=== PATIENT | female | born 1990 | race Hispanic/Latino ===

== ENCOUNTER 2019-04-03 17:04 | Emergency (ER) | payer OTHER | END 2019-04-03 17:46 | disposition home or self-care (01) | LOC: EDH 17:04 | DX: S70.01XA Contusion of right hip, initial encounter (principal); S10.93XA Contusion of unspecified part of neck, initial encounter; S40.021A Contusion of right upper arm, initial encounter; S80.01XA Contusion of right knee, initial encounter; S16.1XXA Strain of muscle, fascia and tendon at neck level, initial encounter; Z72.0 Tobacco use; Z98.890 Other specified postprocedural states; Y04.8XXA Assault by other bodily force, initial encounter; Y93.89 Activity, other specified; Y92.89 Other specified places as the place of occurrence of the external cause; Y99.8 Other external cause status ==

== ENCOUNTER 2020-09-30 03:12 | Emergency (ER) | payer MEDICAID ==
[2020-09-30] MEDS ORDERED: ONDANSETRON HCL 4 MG/2 ML VIAL IVP ONE (03:13)
[2020-09-30] MEDS ORDERED: PROCHLORPERAZINE EDISYLATE 10 MG/2 ML VIAL IV ONE (03:13)
[2020-09-30] MEDS ORDERED: SODIUM CHLORIDE 0.9% 1000ML 1,000 ML IV ONE (03:13)
[2020-09-30] MEDS ORDERED: DiphenhydrAMINE HCL 50 MG/ML VIAL ONE (03:49)
[2020-09-30 03:56] LABS: BASOPHILS % (AUTO) 0.1 % (0.0-5.0); HEMATOCRIT 41.1 % (36-48); MEAN CORPUSCULAR HEMOGLOBIN 32.2 pg (27.0-33.0); MEAN CORPUSCULAR HGB CONC 35.8 g/dL (32.0-36.0); MEAN CORPUSCULAR VOLUME 89.9 fL (79-99); MONOCYTES % (AUTO) 2.3 % (3.0-13.0); PLATELET COUNT (AUTO) 357 K/uL (130-400); RED BLOOD CELL COUNT(AUTO) 4.57 MIL/uL (4.00-5.50); WHITE BLOOD COUNT (AUTO) 15.7 K/uL (4.8-10.8)
[2020-09-30 04:08] LABS: CREATININE 0.9 mg/dL (0.5-1.5); POTASSIUM 3.5 mmol/L (3.5-5.1)
[2020-09-30 04:12] LABS: ALBUMIN 4.2 g/dL (3.5-5.0); BILIRUBIN,TOTAL 2.3 mg/dL (0.2-1.0); TOTAL PROTEIN, SERUM 7.9 g/dL (6.0-8.3)
== END 2020-09-30 09:04 | disposition home or self-care (01) ==
LOC: EDH 03:12
DX: O34.81 Maternal care for other abnormalities of pelvic organs, first trimester (principal); N83.12 Corpus luteum cyst of left ovary; O26.891 Other specified pregnancy related conditions, first trimester; R10.31 Right lower quadrant pain; F41.9 Anxiety disorder, unspecified; Z3A.01 Less than 8 weeks gestation of pregnancy
CPT/HCPCS: 36415; 74181; 76801; 80053; 81025; 85025; 86850; 86900; 86901; 96361; 96374; 96375; 99285; J0780; J1200; J2405; J7030

== ENCOUNTER 2021-04-22 13:51 | Emergency (ER) | payer MEDICAID ==
[~2021-04-22] VITALS: Ht 160 cm; Wt 65.8 kg
[2021-04-22 13:52] VITALS: BP 117/75
[2021-04-22 15:00] VITALS: BP 125/71
[2021-04-22] MEDS ORDERED: 0.9%NACL 1000ML 1,000 ML IV ONE (15:00)
[2021-04-22] MEDS ORDERED: 0.9%NACL 1000ML 1,000 ML IV SCH (15:00)
[2021-04-22 15:05] LABS: BASOPHILS % (AUTO) 0.3 % (0.0-5.0); EOSINOPHILS % (AUTO) 0.7 % (0.0-8.0); HEMATOCRIT 39.9 % (36-48); LYMPHOCYTES % (AUTO) 19.5 % (21.0-51.0); MEAN CORPUSCULAR HEMOGLOBIN 31.3 pg (27.0-33.0); MEAN CORPUSCULAR HGB CONC 34.1 g/dL (32.0-36.0); MEAN CORPUSCULAR VOLUME 91.7 fL (79-99); MONOCYTES % (AUTO) 5.4 % (3.0-13.0); NEUTROPHILS % (AUTO) 73.3 % (40.0-77.0); PLATELET COUNT (AUTO) 272 K/uL (130-400); RED BLOOD CELL COUNT(AUTO) 4.35 MIL/uL (4.00-5.50); RED CELL DISTRIBUTION WIDTH 13.3 % (11.0-15.5); WHITE BLOOD COUNT (AUTO) 10.5 K/uL (4.8-10.8)
[2021-04-22 15:19] LABS: APPEARANCE,URINE Cloudy (CLEAR); BILIRUBIN,URINE Negative (NEGATIVE); COLOR,URINE Yellow (YELLOW); GLUCOSE, URINE (UA) Negative (NEGATIVE); KETONES,URINE Trace mg/dL (NEGATIVE); LEUKOCYTE ESTERASE ,URINE Small (NEGATIVE); NITRATE,URINE Negative (NEGATIVE); OCCULT BLOOD,URINE Large (NEGATIVE); PROTEIN,URINE POS 1+ mg/dL (NEGATIVE)
[2021-04-22 15:31] LABS: CALCIUM OXALATE CRYSTALS,UR Few /LPF (None Seen); RBC,URINE None Seen /HPF (0-1); WBC,URINE 0-1 /HPF (0-1)
[2021-04-22 15:32] LABS: AMORPHOUS SEDIMENT,UR Many /LPF (None Seen); BACTERIA,URINE Few /HPF (None Seen); MUCUS,URINE Many LPF (None Seen)
[2021-04-22] MEDS ORDERED: ACETAMINOPHEN 325 MG TAB ONE (16:10)
[2021-04-22 16:18] VITALS: BP 122/72
[2021-04-22] MEDS ORDERED: ACETAMINOPHEN 500 MG TABLET PO ONE (16:30)
== END 2021-04-22 16:58 | disposition home or self-care (01) ==
LOC: EDH 13:51
DX: O20.0 Threatened abortion (principal); F41.9 Anxiety disorder, unspecified; Z3A.01 Less than 8 weeks gestation of pregnancy
CPT/HCPCS: 36415; 76801; 81001; 81025; 84702; 85025; 86900; 86901; 96360; 96361; 99284; J7030

== ENCOUNTER 2023-05-03 10:57 | Emergency (ER) | payer MEDICAID, OTHER ==
[~2023-05-03] VITALS: Ht 160 cm; Wt 80.7 kg
[2023-05-03 11:06] VITALS: BP 128/97; PULSE 75; RESP 18
[2023-05-03 11:38] LABS: BASOPHILS # (AUTO) 0.04 K/uL (0.00-0.20); BASOPHILS % (AUTO) 0.5 % (0.0-5.0); EOSINOPHILS # (AUTO) 0.12 K/uL (0.00-0.70); EOSINOPHILS % (AUTO) 1.5 % (0.0-8.0); HEMATOCRIT 42.9 % (36-48); IMMATURE GRANULOCYTE ABSOLUTE 0.07 K/uL (0-1); LYMPHOCYTES # (AUTO) 2.7 K/uL (1.0-4.8); LYMPHOCYTES % (AUTO) 33.2 % (21.0-51.0); MEAN CORPUSCULAR HGB CONC 34.5 g/dL (32.0-36.0); MEAN CORPUSCULAR VOLUME 92.9 fL (79-99); MONOCYTES # (AUTO) 0.3 K/uL (0.1-1.0); MONOCYTES % (AUTO) 3.8 % (3.0-13.0); NEUTROPHILS % (AUTO) 60.1 % (40.0-77.0); PLATELET COUNT (AUTO) 307 K/uL (130-400); RED BLOOD CELL COUNT(AUTO) 4.62 MIL/uL (4.00-5.50); RED CELL DISTRIBUTION WIDTH 12.5 % (11.0-15.5); WHITE BLOOD COUNT (AUTO) 8.2 K/uL (4.8-10.8)
[2023-05-03 11:53] LABS: CREATININE 0.8 mg/dL (0.5-1.5); POTASSIUM 4.1 mmol/L (3.5-5.1)
[2023-05-03 11:58] LABS: ALBUMIN 3.8 g/dL (3.5-5.0); B-TYPE NATRIURETIC PEPTIDE < 5 pg/mL (0-100); BILIRUBIN,TOTAL 0.9 mg/dL (0.2-1.0); TOTAL PROTEIN, SERUM 7.2 g/dL (6.0-8.3)
[2023-05-03 12:05] LABS: HCG,QUALITATIVE URINE NEGATIVE (NEGATIVE)
[2023-05-03 12:07] LABS: APPEARANCE,URINE CLOUDY (CLEAR); BILIRUBIN,URINE NEGATIVE (NEGATIVE); COLOR,URINE COLORLESS (YELLOW); GLUCOSE, URINE (UA) NEGATIVE (NEGATIVE); KETONES,URINE NEGATIVE (NEGATIVE); LEUKOCYTE ESTERASE ,URINE 500 Leu/uL (NEGATIVE); NITRATE,URINE NEGATIVE (NEGATIVE); OCCULT BLOOD,URINE NEGATIVE (NEGATIVE); PROTEIN,URINE NEGATIVE (NEGATIVE); UROBILINOGEN,URINE 0.2 mg/dL (0.2-1.0)
[2023-05-03 12:10] LABS: ADD UA MICROSCOPIC YES
[2023-05-03 12:15] LABS: BACTERIA,URINE RARE /HPF (None Seen); MUCUS,URINE RARE LPF (None Seen); SQUAMOUS EPITHELIAL CELL,UR MANY /HPF (0-2)
== END 2023-05-03 14:13 | disposition home or self-care (01) ==
LOC: EDH 10:57
DX: R07.89 Other chest pain (principal); R42 Dizziness and giddiness; H53.8 Other visual disturbances; R51.9 Headache, unspecified; M79.601 Pain in right arm; F41.9 Anxiety disorder, unspecified
CPT/HCPCS: 36415; 70450; 71046; 80053; 81001; 81025; 83880; 84484; 85025; 87088; 93005

== ENCOUNTER 2024-09-24 09:40 | Emergency (ER) | payer BC ==
[~2024-09-24] VITALS: Ht 160 cm; Wt 67.1 kg
[~2024-09-24 09:40] MED LIST: CEPH500T PO
--- NOTE | 2024-09-24 10:20 | ERN ---
ED Note History of Present Illness Stated Complaint: VAG BLEEDING X 2 WEEKS Chief Complaint: Vaginal Problems/Bleeding Time Seen by MD: 09:43 Dictation: 33-year-old female presents to the ED for evaluation of vaginal bleeding onset two weeks ago. Patient is complaining of lower abdominal pain, blurry vision, dizziness, nausea and vomiting, but denies any chest pain or shortness a breath. Patient states she has been experiencing abnormal menstrual cycles stating they usually last over 12 days. Allergies: Coded Allergies: No Known Drug Allergies (Verified Allergy, 03/03/12) Home Meds Active Scripts Cephalexin (Cephalexin) 500 Mg Tablet, 500 MG PO BID for 7 Days, #14 TAB Prov:AFSHIN MEDELLIN 02/12/24 Past Medical History Past Medical History: Anxiety, Migraines Additional Past Medical Hx: HEADACHES Surgical History: Other Surgical History Other: D&C Social History: Negative, Lives with family : 7 Para: 2 Aborts: 4 Review of System Dictation Constitutional: Negative for fever,chills, and weight loss Eyes: Positive for blurry vision Negative for injury, pain,redness, and discharge ENT: Negative for injury,pain or swelling Cardiovascular: Negative for chest pain, palpitations, and edema Respiratory: Negative for shortness of breath, cough, and wheezing, Abdomen/GI: Positive for nausea and vomiting Negative for abdominal pain, diarrhea, and constipation Back: Negative for injury and pain : Positive for vaginal bleeding Negative for injury and discharge MS/Extremity: Negative for injury and deformity Skin: Negative for rash, and discoloration Neuro: Positive for dizziness Negative for headache, weakness, numbness, tingling, and seizure Psych: Negative for suicide ideation, homicidal ideation, and hallucinations Initial Vital Sign VS Vital Signs Date Time Temp Pulse Resp B/P (MAP) Pulse Ox O2 Delivery O2 Flow Rate FiO2 09/24/24 09:40 98.1 87 16 141/87 98 Room Air* 0 21 Physical Exam Dictation General: awake, alert, NAD Head/Face: Normocephalic, atraumatic Eyes: PERRL, EOMI, vision at baseline ENT: oral cavity clear, TMs clear, no signs of infection Neck: Trachea midline, supple, no nuchal rigidity Cardiovascular: RRR, normal S1/S2, No MRGs, no JVD Respiratory: CTAB, no respiratory distress, No rales or wheezes Abdomen: Soft, non-tender, non-distended, normal bowel sounds, no guarding or rebound. Skin: Warm, dry, normal turgor, no rash MS/Extremity: Pulses equal, no cyanosis, neurovascular intact, FROM Neuro: COAx4, GCS 15, strength 5/5, CN 2-12 intact, normal cerebellar exam, normal gait, Psych: Normal behavior, mood, and affect normal Results (Laboratory/Radiology) Laboratory/Radiology Laboratory Tests Test 09/24/24 10:16 09/24/24 11:02 Urine Color LIGHT-YELLOW (YELLOW) Urine Appearance CLEAR (CLEAR) Urine pH 7.5 (5.0-8.0) Urine Specific [place] 1.011 (1.001-1.031) Urine Protein NEGATIVE mg/dL (NEGATIVE) Urine Glucose (UA) NEGATIVE mg/dL (NEGATIVE) Urine Ketones NEGATIVE mg/dL (NEGATIVE) Urine Occult Blood SMALL (NEGATIVE) H Urine Nitrate NEGATIVE (NEGATIVE) Urine Bilirubin NEGATIVE mg/dL (NEGATIVE) Urine Urobilinogen 0.2 mg/dL (0.2-1.0) Urine Leukocyte Esterase NEGATIVE Jessica/uL Urine RBC 2-5 /HPF (0-1) H Urine WBC 0-1 /HPF (0-1) Urine Squamous Epithelial Cells RARE /HPF (0-2) Urine Bacteria None /HPF (None Seen) Urine HCG, Qualitative NEGATIVE (NEGATIVE) White Blood Count 10.3 K/uL (4.8-10.8) Red Blood Count 4.77 MIL/uL (4.00-5.50) Hemoglobin 15.0 g/dL (12.0-16.0) Hematocrit 45.2 % (36-48) Mean Corpuscular Volume 94.8 fL (79-99) Mean Corpuscular Hemoglobin 31.4 pg (27.0-33.0) Mean Corpuscular Hemoglobin Concent 33.2 g/dL (32.0-36.0) Red Cell Distribution Width 12.7 % (11.0-15.5) Platelet Count 315 K/uL (130-400) Mean Platelet Volume 10.8 fL (7.5-10.5) H Immature Granulocyte % (Auto) 1.6 % (0-1) H Neutrophils (%) (Auto) 66.1 % (40.0-77.0) Lymphocytes (%) (Auto) 24.9 % (21.0-51.0) Monocytes (%) (Auto) 6.4 % (3.0-13.0) Eosinophils (%) (Auto) 0.6 % (0.0-8.0) Basophils (%) (Auto) 0.4 % (0.0-5.0) Neutrophils # (Auto) 6.8 K/uL (1.8-7.7) Lymphocytes # (Auto) 2.6 K/uL (1.0-4.8) Monocytes # (Auto) 0.7 K/uL (0.1-1.0) Eosinophils # (Auto) 0.06 K/uL (0.00-0.70) Basophils # (Auto) 0.04 K/uL (0.00-0.20) Absolute Immature Granulocyte (auto 0.17 K/uL (0-1) Nucleated Red Blood Cells 0.0 % (0.0-0.19) Sodium Level 141 mmol/L (136-145) Potassium Level 3.4 mmol/L (3.5-5.1) L Chloride Level 104 mmol/L (101-111) Carbon Dioxide Level 33 mmol/L (21-32) H Blood Urea Nitrogen 7 mg/dL (7-18) Creatinine 0.9 mg/dL (0.5-1.0) Glomerular Filtration Rate Calc 87 mL/min (>90) Random Glucose 73 mg/dL (70-105) Total Calcium 8.1 mg/dL (8.5-10.1) L Total Bilirubin 0.6 mg/dL (0.2-1.0) Direct Bilirubin 0.1 mg/dL (0.0-0.3) Aspartate Amino Transf (AST/SGOT) 21 U/L (10-37) Alanine Aminotransferase (ALT/SGPT) 32 U/L (12-78) Alkaline Phosphatase 76 U/L (50-136) Total Protein 7.1 g/dL (6.0-8.3) Albumin 3.4 g/dL (3.5-5.0) L Labs Reviewed?: Yes ED Course ED Course Orders Procedure Category Date Status Time Us Pelvic Non-Ob Comp US 09/24/24 Resulted 09:53 Cbc With Differential LAB 09/24/24 Complete 09:53 Basic Metabolic Panel LAB 09/24/24 Complete 09:53 ,Urine Test LAB 09/24/24 Complete 09:53 Hepatic Function Panel LAB 09/24/24 Complete 09:53 Urinalysis Profile LAB 09/24/24 Complete 09:53 Vital Signs Date Time Temp Pulse Resp B/P (MAP) Pulse Ox O2 Delivery O2 Flow Rate FiO2 09/24/24 11:27 98.2 88 20 134/80 99 Room Air* 0 21 09/24/24 09:41 98.1 96 20 141/87 99 Room Air 0 09/24/24 09:40 98.1 87 16 141/87 98 Room Air* 0 21 Medical Decision Making MDM MDM: Differential diagnosis: Dysfunctional uterine bleed, anemia, dysmenorrhea Risk of complication and/or morbidity or mortality of patient management: None Medications-Per medication reconciliation Need for hospitalization: Patient does not meet criteria for hospitalization. Need for emergency major/minor surgery: No There are no social concerns with this patient. I independently interpreted the test that were performed, results were reviewed by me and considered findings on radiology if ordered. DX & DISP Disposition: Discharge Departure Impression: Primary Impression: Dysmenorrhea Condition: Stable Referrals: DENNIS DA SILVA MD (PCP) DOREEN CAMARA MD Sep 24, 2024 10:20
[2024-09-24 10:28] LABS: ADD UA MICROSCOPIC YES; APPEARANCE,URINE CLEAR (CLEAR); BILIRUBIN,URINE NEGATIVE (NEGATIVE); COLOR,URINE LIGHT-YELLOW (YELLOW); GLUCOSE, URINE (UA) NEGATIVE (NEGATIVE); HCG,QUALITATIVE URINE NEGATIVE (NEGATIVE); KETONES,URINE NEGATIVE (NEGATIVE); LEUKOCYTE ESTERASE ,URINE NEGATIVE Leu/uL (NEGATIVE); NITRATE,URINE NEGATIVE (NEGATIVE); OCCULT BLOOD,URINE SMALL (NEGATIVE); PH,URINE 7.5 (5.0-8.0); PROTEIN,URINE NEGATIVE (NEGATIVE); UROBILINOGEN,URINE 0.2 mg/dL (0.2-1.0)
[2024-09-24 10:29] LABS: SQUAMOUS EPITHELIAL CELL,UR RARE /HPF (0-2); WBC,URINE 0-1 /HPF (0-1)
--- NOTE | 2024-09-24 11:20 | NUR ---
PATIENT PROVIDED WITH DISCHARGE INSTRUCTIONS VERBALIZES TO NURSE " IM ALSO HAVING RECTAL PAIN". PATIENT STATES " I DIDNT LET THE DR. KNOW ABOUT MY RECTAL PAIN". MD NOTIFIED OF PATIENT CHANGE OF COMPLAINTS. MD CONSULTED WITH PATIENT.
[2024-09-24 11:22] LABS: BASOPHILS # (AUTO) 0.04 K/uL (0.00-0.20); BASOPHILS % (AUTO) 0.4 % (0.0-5.0); EOSINOPHILS # (AUTO) 0.06 K/uL (0.00-0.70); EOSINOPHILS % (AUTO) 0.6 % (0.0-8.0); HEMATOCRIT 45.2 % (36-48); IMMATURE GRANULOCYTE ABSOLUTE 0.17 K/uL (0-1); LYMPHOCYTES # (AUTO) 2.6 K/uL (1.0-4.8); LYMPHOCYTES % (AUTO) 24.9 % (21.0-51.0); MEAN CORPUSCULAR HEMOGLOBIN 31.4 pg (27.0-33.0); MEAN CORPUSCULAR HGB CONC 33.2 g/dL (32.0-36.0); MEAN CORPUSCULAR VOLUME 94.8 fL (79-99); MONOCYTES # (AUTO) 0.7 K/uL (0.1-1.0); MONOCYTES % (AUTO) 6.4 % (3.0-13.0); NEUTROPHILS # (AUTO) 6.8 K/uL (1.8-7.7); NEUTROPHILS % (AUTO) 66.1 % (40.0-77.0); PLATELET COUNT (AUTO) 315 K/uL (130-400); RED BLOOD CELL COUNT(AUTO) 4.77 MIL/uL (4.00-5.50); RED CELL DISTRIBUTION WIDTH 12.7 % (11.0-15.5); WHITE BLOOD COUNT (AUTO) 10.3 K/uL (4.8-10.8)
[2024-09-24 11:27] VITALS: BP 134/80; PULSE 88; RESP 20; TEMP 98.3; O2SAT 99
[2024-09-24 11:29] LABS: CREATININE 0.9 mg/dL (0.5-1.0); POTASSIUM 3.4 mmol/L (3.5-5.1)
[2024-09-24 11:34] LABS: ALBUMIN 3.4 g/dL (3.5-5.0); BILIRUBIN,DIRECT 0.1 mg/dL (0.0-0.3); BILIRUBIN,TOTAL 0.6 mg/dL (0.2-1.0); TOTAL PROTEIN, SERUM 7.1 g/dL (6.0-8.3)
--- NOTE | 2024-09-24 12:38 | HMCIMG ---
US PELVIC NON-OB COMP HISTORY: Vaginal bleeding COMPARISON: None TECHNIQUE: Transabdominal pelvic ultrasound study was performed. FINDINGS: The uterus measures 10.6 x 3.5 x 5.9 cm. The right ovary measures 3.2 x 2.8 x 3.3 cm. The left ovary is not well seen limiting evaluation. There is right ovarian cyst measuring 2.7 x 2.3 x 3 cm. Endometrial thickness is 3 mm. No free fluid is seen in the cul-de-sac. IMPRESSION: 1. No adnexal mass is seen.
== END 2024-09-24 11:42 | disposition home or self-care (01) ==
LOC: EDH 09:40
DX: N94.6 Dysmenorrhea, unspecified (principal); F41.9 Anxiety disorder, unspecified; G43.909 Migraine, unspecified, not intractable, without status migrainosus
CPT/HCPCS: 36415; 76856; 80048; 80076; 81001; 81025; 85025; 99284

== ENCOUNTER 2025-03-17 19:28 | Emergency (ER) | payer SELFPAY ==
[~2025-03-17] VITALS: Ht 160 cm; Wt 95.3 kg
--- NOTE | 2025-03-17 20:24 | ERN ---
ED Note History of Present Illness Stated Complaint: C/O HEADACHE, BLURRY VISION X 2 DAYS Chief Complaint: Headache Time Seen by MD: 19:33 Dictation: 34-year-old female presents to ER complaints of headache HTN, blurred vision x2 days patient states has history of migraines and HTN but uncontrolled does not have PCP. Has not taken any medication for pain control. Allergies: Coded Allergies: No Known Drug Allergies (Verified Allergy, 03/03/12) Home Meds Active Scripts Naproxen (Naproxen) 500 Mg Tablet, 1 TAB PO BID for pain, #20 TAB 0 Refills Prov:KANDY GLOVER NP 03/17/25 Cephalexin (Cephalexin) 500 Mg Tablet, 500 MG PO BID for 7 Days, #14 TAB Prov:AFSHIN MEDELLIN 02/12/24 Past Medical History Past Medical History: Hypothyroid, Migraines Additional Past Medical Hx: HEADACHES Surgical History: None Surgical History Other: D&C Social History: Negative, Lives with family LMP: Mar 17, 2025 : 7 Para: 2 Aborts: 4 Review of System Dictation Constitutional: Negative for fever,chills, and weight loss Eyes: Negative for injury, pain,redness, and discharge ENT: Negative for injury,pain or swelling Cardiovascular: Negative for chest pain, palpitations, and edema Respiratory: Negative for shortness of breath, cough, wheezing, and pleuritic chest pain Abdomen/GI: Negative for abdominal pain, nausea, vomiting, diarrhea, and constipation Back: Negative for injury and pain : Negative for injury, bleeding and discharge MS/Extremity: Negative for injury and deformity Skin: Negative for rash, and discoloration Neuro: Negative for numbness, tingling, and seizure. Positive for headache, blurred vision Psych: Negative for suicide ideation, homicidal ideation, and hallucinations Allergy/Immunology: Negative for hives, rash, and allergies Initial Vital Sign VS Vital Signs Date Time Temp Pulse Resp B/P (MAP) Pulse Ox O2 Delivery O2 Flow Rate FiO2 03/17/25 19:31 98.1 78 20 146/81 97 Room Air 03/17/25 19:39 0 21 Physical Exam Dictation General: awake, alert, NAD. Head/Face: Normocephalic, atraumatic Eyes: PERRL, EOMI, Photosensitivity ENT: oral cavity clear, TMs clear, no signs of infection Neck: Trachea midline, supple, no nuchal rigidity Cardiovascular: RRR, normal S1/S2, No MRGs, no JVD Respiratory: CTAB, no respiratory distress, No rales or wheezes Abdomen: Soft, non-tender, non-distended, normal bowel sounds, no guarding or rebound. Skin: Warm, dry, normal turgor, no rash MS/Extremity: Pulses equal, no cyanosis, neurovascular intact, FROM Neuro: COAx4, GCS 15, strength 5/5, CN 2-12 intact, normal cerebellar exam, no rmal gait, Psych: Normal behavior, mood, and affect normal Results (Laboratory/Radiology) Laboratory/Radiology Laboratory Tests Test 03/17/25 20:23 Urine HCG, Qualitative NEGATIVE (NEGATIVE) ED Course ED Course Orders Procedure Category Date Status Time ,Urine Test LAB 03/17/25 Complete 19:54 Ketorolac PHA 03/17/25 Complete Tromethamine 30mg/Ml 20:00 Diphenhydramine Hcl PHA 03/17/25 Complete (Benadryl Inj) 20:00 Ketorolac PHA 03/17/25 Complete Tromethamine 30mg/Ml 21:30 Diphenhydramine Hcl PHA 03/17/25 Complete (Benadryl Cap) 22:30 Current Medications Medications (Trade) Dose Ordered Sig/Carlie Route PRN Reason Start Time Stop Time Status Last Admin Dose Admin Diphenhydramine HCl (BENAdryl CAP) 25 mg ONCE ONCE PO 03/17/25 22:30 03/17/25 22:31 DC 03/17/25 22:21 Diphenhydramine HCl (BENAdryl INJ) 25 mg ONCE ONCE IM 03/17/25 20:00 03/17/25 20:01 DC 03/17/25 20:38 Ketorolac Tromethamine (toRADol) 30 mg ONCE ONCE IM 03/17/25 20:00 03/17/25 20:01 DC 03/17/25 20:37 Ketorolac Tromethamine (toRADol) 30 mg ONCE ONCE IM 03/17/25 21:30 03/17/25 21:31 DC 03/17/25 21:45 Vital Signs Date Time Temp Pulse Resp B/P (MAP) Pulse Ox O2 Delivery O2 Flow Rate FiO2 03/17/25 22:25 65 18 120/7 94 Room Air* 0 21 03/17/25 21:35 98.1 63 18 124/75 96 Room Air* 0 21 03/17/25 19:39 98.1 78 20 146/81 97 Room Air* 0 21 03/17/25 19:31 98.1 78 20 146/81 97 Room Air Medical Decision Making MDM A 14 points ROS done, pertinent positive and negatives described in HPI; all others negative. TIME WAS SPENT ON COUNSELING, REVIEWING MEDICAL RECORDS, REVIEWING THE ENTIRE VISIT DOCUMENTATION (INCLUDING ANY COMMENTS THAT MAY HAVE BEEN GIVEN BY THE PATIENT i.e. THE REVIEW OF SYSTEMS) AND COORDINATION OF CARE Patient advised needs to go home and rest. Patient advised she needs to follow up with PCP to get blood pressure under control and to get evaluated for her migraine condition. Patient VSS, NAD, nontoxic, stable for discharge. Pt given discharge instructions in layman terms and understood, all questions answered. Pt will follow up with PCP and return to the ER if worse. DX & DISP Disposition: Discharge Departure Impression: Primary Impression: Headache Additional Impression: Migraine Condition: Stable Scripts Naproxen (Naproxen) 500 Mg Tablet 1 TAB PO BID for pain, #20 TAB 0 Refills Prov: KANDY GLOVER NP 03/17/25 Additional Instructions: FOLLOW-UP WITH YOUR PCP IN 24-72 HOURS AND IN THE EVENT IF SYMPTOMS WORSEN OR AN EMERGENCY OVERNIGHT REPORT TO THE ED IMMEDIATELY Referrals: DENNIS DA SILVA MD (PCP) KANDY GLOVER NP Mar 17, 2025 20:24
[2025-03-17 21:35] VITALS: TEMP 98.1
[2025-03-17 22:25] VITALS: BP 120/7; PULSE 65; RESP 18; O2SAT 94
[2025-03-17] MEDS ORDERED: NAPR-1194 PO (22:32)
== END 2025-03-17 22:46 | disposition home or self-care (01) ==
LOC: EDH 19:28
DX: G43.909 Migraine, unspecified, not intractable, without status migrainosus (principal); E03.9 Hypothyroidism, unspecified
CPT/HCPCS: 99284; 81025; 96372 ×3; J1885 ×2; Q0163; J1200